=== PATIENT | female | born 1965 | race Two or more races ===

== ENCOUNTER 2020-06-30 20:21 | Emergency (ER) | payer SELFPAY ==
[~2020-06-30] VITALS: Ht 157.5 cm; Wt 69.9 kg
[~2020-06-30 20:21] MED LIST: CELE200C PO; DIPH25CA46; HYDR-3237 PO; HYDR-757; OMEP-110
[2020-06-30 20:24] VITALS: BP 132/79
[2020-06-30] MEDS ORDERED: LIDOCAINE-MPF 1%, 5ML ONE (20:41)
[2020-06-30] MEDS ORDERED: LIDOCAINE-MPF 1%, 5ML INFIL ONE (21:00)
[2020-06-30] MEDS ORDERED: HYDROmorphone 1 MG/ML, 1ML INJ ONE (21:15)
--- NOTE | 2020-06-30 21:21 | NUR ---
DIRECTOR DECISION SUPPORT PER MAR
[2020-06-30] MEDS ORDERED: DIPH,PERTUSS(ACELL),TET VAC/PF 0.5 ML IM-VACC ONE ×2 (21:23→21:30)
[2020-06-30] MEDS ORDERED: HYDROmorphone 1 MG/ML, 1ML INJ IM ONE (21:30)
== END 2020-06-30 21:38 ==
LOC: ED 21:32
DX: S01.512A Laceration without foreign body of oral cavity, initial encounter (principal); X58.XXXA Exposure to other specified factors, initial encounter; Y93.89 Activity, other specified; Y92.009 Unspecified place in unspecified non-institutional (private) residence as the place of occurrence of the external cause; Y99.8 Other external cause status
CPT/HCPCS: 41250; 90471; 90715; 96372; 99284; J1170